=== PATIENT | male | born 1975 | race Caucasian/White ===

== ENCOUNTER → 2016-05-26 | Outpatient (REF) | payer OTHER ==
[2016-05-26 21:34] LABS: ALBUMIN 4.2 GM/DL (3.2-5.2); ALBUMIN/GLOBULIN RATIO 1.17 (1.00-1.93); ALKALINE PHOSPHATASE 93 U/L (45-117); ALT/SGPT 128 U/L (12-78); ANION GAP 7 MEQ/L (8-16); AST/SGOT 62 U/L (15-37); BILIRUBIN,TOTAL 0.5 MG/DL (0.2-1.0); BLOOD UREA NITROGEN 19 MG/DL (7-18); CALCIUM LEVEL 9.3 MG/DL (8.5-10.1); CARBON DIOXIDE LEVEL 30 MEQ/L (21-32); CHLORIDE LEVEL 101 MEQ/L (98-107); CHOLESTEROL LEVEL 301 MG/DL (<200); CREATININE FOR GFR 1.04 MG/DL (0.70-1.30); GLOMERULAR FILTRATION RATE > 60.0 (>60); GLUCOSE, FASTING 120 MG/DL (70-105); POTASSIUM SERUM 4.2 MEQ/L (3.5-5.1); SODIUM LEVEL 138 MEQ/L (136-145); TOTAL PROTEIN 7.8 GM/DL (6.4-8.2); TRIGLYCERIDES LEVEL 453 MG/DL (<150)
== END ==
LOC: M SFHCLERA 16:04
PROVIDERS: ATTEND Family Medicine
DX: R94.5 Abnormal results of liver function studies (principal); I10 Essential (primary) hypertension

== ENCOUNTER → 2017-05-06 | Outpatient (REF) | payer OTHER | LOC: M SFHCLERA 15:55 | DX: J39.2 Other diseases of pharynx (principal) ==

== ENCOUNTER → 2017-06-03 | Outpatient (REF) | payer OTHER | LOC: M SFHCLERA 15:37 | DX: J02.9 Acute pharyngitis, unspecified (principal) ==

== ENCOUNTER → 2018-10-21 | Outpatient (REF) | payer OTHER | LOC: M SFHCLERA 16:09 | PROVIDERS: ATTEND Nurse Practitioner Family | DX: R10.9 Unspecified abdominal pain (principal) ==

== ENCOUNTER → 2019-05-17 | Outpatient (REF) | payer OTHER, SELFPAY ==
[2019-05-17 19:41] LABS: CHOLESTEROL RISK RATIO 4.196 (<5)
== END ==
LOC: M SFHCLERA 15:40
PROVIDERS: ATTEND Nurse Practitioner Family
DX: E78.2 Mixed hyperlipidemia (principal)